=== PATIENT | female | born 1935 | race Caucasian/White ===

== ENCOUNTER 2021-02-20 17:07 | Inpatient (IN) | payer OTHER ==
[~2021-02-20] VITALS: Ht 175.3 cm; Wt 127.0 kg
--- NOTE | ~2021-02-20 | EMS ---
[address] [address] EMS Patient Care Report Name: MELANIE VILLAFANA Room #: 211-P [facility] IN M.R.#: [id number] Admission: 02/20/21 Attend Phys: Ravindra Kong MD Discharge: 02/21/21 Date of : 39 Report #: [id number] THIS REPORT FOR: //name// Report Transmitted: 02/22/2021 11:06 EMS Care Summary [place], [place]/[facility] Incident [id number] @ 02/20/2021 16:23 Incident Location [address] [place] [address] Patient MELANIE VILLAFANA Female, 85 Years 1935 Patient Address [address] [place], [place] [id number] Patient History Congestive Heart Failure (CHF),Cardiomyopathy, Patient Allergies Paroxetine,Lisinopril,Cipro,Niacin,Metformin, Patient Medications Oxycodone/ASA, Zetia, Carvedilol, Docusate Sodium, Furosemide, Chief Complaint SOA Disposition Transported No Lights/[place] Dis[facility] Reason Breathing Problem Transported To [facility] Narrative Upon arrival PT was sitting in the upright position in nurses office. PT had a CC of SOA with onset of the prior day. PT stated that when she is active she becomes SOA. PT was assisted to stretcher and then taken to back of ambulance [place] [id number] EMS Patient Care Report Name: MELANIE VILLAFANA Room #: 211-P [facility] IN M.R.#: [id number] Admission: 02/20/21 Attend Phys: Ravindra Kong MD Discharge: 02/21/21 Date of : 39 Report #: [id number] for further medical evaluation and intervention. PT was then monitored for any change while en route to hospital. Initial Vitals @16:48P: 94,R: 18,BP: 118/76,Pain: 0/10,GCS: 15,CO: 1,SpO2: 95,Revised Trauma: 12, @16:38P: 93,R: 18,BP: 124/77,Pain: 0/10,GCS: 15,CO: 0,SpO2: 90,Revised Trauma: 12, Assessments @16:34MENTAL:No Abnormalities,SKIN:No Abnormalities,HEENT:Head/Face: No Abnormalities,Eyes: No Abnormalities,Neck/Airway: No Abnormalities,LUNG SOUNDS:General: No Abnormalities,Left Upper: No Abnormalities,Right Upper: No Abnormalities,Left Lower: No Abnormalities,Right Lower: No Abnormalities,ABDOMEN:General: No Abnormalities,Left Upper: No Abnormalities,Right Upper: No Abnormalities,Left Lower: No Abnormalities,Right Lower: No Abnormalities,PELVIS//GI:No Abnormalities,EXTREMITIES:Capillary Refill: Right Upper: < 2 Sec,Capillary Refill: Left Upper: < 2 Sec,PULSE:Radial: 2+ Normal,NEURO:No Abnormalities, Impression Acute Respiratory Distress (Dyspnea) Procedures @16:40 Oxygen FlowRate: 3 Device: Nasal Cannula (NC) Response: ImprovedSucceeded @16:34 ALS Assessment Response: UnchangedSucceeded Timeline 16:21,Call Received 16:21,Dispatch Notified 16:23,Dispatched 16:23,En Route 16:32,On Scene 16:34,At Patient 16:34,ALS Assessment,Response: UnchangedSucceeded, 16:38,BP: 124/77 M,PULSE: 93,RR: 18 R,SPO2: 90 Ox,ETCO2: ,BG: ,PAIN: 0,GCS: 15, 16:40,Oxygen FlowRate: 3 Device: Nasal Cannula (NC) Response: ImprovedSucceeded, 16:44,Depart Scene 16:48,BP: 118/76 M,PULSE: 94,RR: 18 R,SPO2: 95 Ox,ETCO2: ,BG: ,PAIN: 0,GCS: 15, 16:56,At Destination 17:25,Call Closed Disclaimer v1.1 Copyright 2020 [employer] [place] [address] EMS Patient Care Report Name: MELANIE VILLAFANA Room #: 211-P [facility] IN M.R.#: [id number] Admission: 02/20/21 Attend Phys: Ravindra Kong MD Discharge: 02/21/21 Date of : 39 Report #: [id number] This EMS Care Summary contains data elements from the applicable legal record (which may be displayed differently). It is designed to provide pertinent information for the following purposes: continuity of care, clinical quality, and state data reporting. The complete legal record is available to ED staff and administrators of the receiving hospital in [facility]'s Patient Tracker. All data is provided "as is."
[2021-02-20 17:31] VITALS: BP 154/73
[2021-02-20 17:35] LABS: ABSOLUTE NEUTROPHILS 6.4 thou/uL (1.4-8.2); BASOPHILS 0.8 % (0.0-2.0); EOSINOPHILS 5.2 % (0.0-3.0); HEMATOCRIT 41.3 % (37.0-47.0); HEMOGLOBIN 13.6 gm/dL (12.0-15.0); LYMPHOCYTES 9.2 % (24.0-44.0); MCH 24.7 pg (26.0-34.0); MCHC 33.1 g/dL (28.0-37.0); MCV 74.8 fL (80.0-100.0); MONOCYTES 10.6 % (1.0-8.0); PLATELET COUNT 184 thou/uL (150-400); POLYS 74.2 % (36.0-66.0); RBC 5.51 mil/uL (4.20-5.00); RDW 15.2 % (10.5-14.5); WBC 8.6 thou/uL (4.0-11.0)
[2021-02-20 17:50] LABS: CALCIUM 9.1 mg/dL (8.5-10.1); CREATININE 1.3 mg/dL (0.6-1.0); POTASSIUM 4.1 mmol/L (3.5-5.1)
[2021-02-20 21:39] LABS: INR 1.08; PROTIME 11.7 Seconds (10.5-12.1)
[2021-02-20 21:49] VITALS: BP 140/62
[2021-02-20 22:03] LABS: HEMATOCRIT 43.8 % (37.0-47.0); HEMOGLOBIN 14.4 gm/dL (12.0-15.0); MCH 24.6 pg (26.0-34.0); MCHC 32.8 g/dL (28.0-37.0); RBC 5.85 mil/uL (4.20-5.00); RDW 15.5 % (10.5-14.5); WBC 10.5 thou/uL (4.0-11.0)
[2021-02-20] MEDS ORDERED: BUPROPION HCL200 MG PO (22:03)
[2021-02-20] MEDS ORDERED: ENTRESTO 24 MG1 EACH PO (22:04)
[2021-02-20] MEDS ORDERED: CARVEDILOL25 MG PO (22:04)
[2021-02-20] MEDS ORDERED: EZETIMIBE10 MG PO (22:05)
[2021-02-20] MEDS ORDERED: LEVOTHYROXINE200 MC1 PO (22:05)
[2021-02-20] MEDS ORDERED: GLIMEPIRIDE1 MG PO (22:05)
[2021-02-20] MEDS ORDERED: LEVOTHYROXINE25 MCG PO (22:06)
[2021-02-20] MEDS ORDERED: OMEPRAZOLE40 MG PO (22:07)
[2021-02-20] MEDS ORDERED: LOSARTAN POTASS50 MG PO (22:07)
[2021-02-20] MEDS ORDERED: TAMSULOSIN HCL0.4 MG PO (22:07)
[2021-02-20] MEDS ORDERED: ZOLOFT 50 MG TA50 MG PO (22:07)
[2021-02-20] MEDS ORDERED: FLONASE 0.05%50 MCG NASAL (22:08)
[2021-02-20] MEDS ORDERED: NORVASC5 MG PO (22:08)
[2021-02-20 22:18] LABS: APTT 27.9 Seconds (24.5-32.8); INR 1.05; PROTIME 11.4 Seconds (10.5-12.1)
[2021-02-20 22:44] VITALS: BP 143/66
[2021-02-21 00:07] VITALS: BP 138/77
--- NOTE | 2021-02-21 02:58 | NUR ---
PATIENT ADMITTED TO UNIT APPROXIMATELY 2315 ON 02/20/21. PATIENT CAME FROM ER WITH A DIAGNOSIS OF PE. ER STATED THAT HEPARIN BAG IS ON POLE BUT WAS NOT STARTED DUE TO APTT NOT RESULTED. NOTED THAT ORDER FOR THE HEPARIN INFUSION WAS SCHEDULED TO BEGIN AROUND 1999 WHILE IN THE ER. LAB RESULTS SHOW THAT APTT WAS RESULTED AROUND 2134. AT THIS TIME PATIENT IS DOING WELL AND SHOWS NO S/S OF DISTRESS. NOTED THAT SHE IS ON 3L NC. PATIENT IS ABLE TO AMBULATE FROM STRETCHER TO HER BED. NOTIFIED PROVIDER SALES LEAD GENERATOR REGARDING THE STATUS OF THE HEPARIN INFUSION. NEW ORDER NOTED. INFUSION BEGAN APPROX 2335. PATIENT IS AAOX4. WILL CONTINUE TO MONITOR FOR CHANGES IN STATUS.
[2021-02-21 04:45] VITALS: BP 142/64
[2021-02-21 06:21] LABS: CALCIUM 9.2 mg/dL (8.5-10.1); CREATININE 1.4 mg/dL (0.6-1.0); POTASSIUM 4.1 mmol/L (3.5-5.1)
--- NOTE | 2021-02-21 07:32 | NUR ---
RN SPOKE WITH THE PATIENT THIS MORNING, PT IS A GREAT HISTORIAN. PER PT SHE HAD A PERFORATED BOWEL WHICH LED TO LLQ ABDOMEN COLOSTOMY, 1 WEEK HOSPITAL STAY AND ONE MONTH REHAB STAY. PT IS [facility], WHEN ASKED WHY PATIENT HAD STOPPED TAKING MEDICATION RADHA, PT STATED THAT SHE HAD PROFOUND ARTHRITIS AND ADVERSE REACTION WITH THE MEDICATION, PT CANNOT RECALL THE DOSAGE OF THE MEDICATION.
[2021-02-21 08:00] VITALS: BP 139/58
--- NOTE | 2021-02-21 11:11 | 2DMMODE ---
[facility] [address] [place] [address] 2 D/M-MODE ECHOCARDIOGRAM Name: MELANIE VILLAFANA Room #: 211-P ADM IN M.R.#: [id number] Admission: 02/20/21 Attend Phys: Ravindra Kong MD Discharge: Date of : 39 Report #: [id number] THIS REPORT FOR: cc: Roz Pantoja MD, Karmel MD Santiago, Patrick MD [facility] ~ APPROVED REPORT Study performed: 02/21/2021 09:27:51 EXAM: Comprehensive 2D, Doppler, and color-flow Echocardiogram Patient Location: Bedside Room #: 211 Status: routine BSA: 2.38 HR: 90 bpm BP: 142/64 mmHg Other Information Study Quality: Technically Difficult Technically limited study due to body habitus, inability to position patient. Indications Congestive Heart Failure Diabetes Dyspnea Cardiomyopathy Hypertension/HDD 2D Dimensions IVSd: 12.99 (7-11mm) LVOT Diam: 22.58 (18-24mm) LVDd: 65.07 mm PWd: 13.20 (7-11mm) Ascending Ao: 32.30 (22-36mm) LVDs: 55.71 (25-40mm) Left Atrium: 42.96 (27-40mm) Aortic Root: 32.13 mm IVC: 19.00 mm Aortic Valve AoV Peak Robbie.: 1.87 m/s AO Peak Gr.: 14.66 mmHg LVOT Max P.71 mmHg LVOT Max V: 1.09 m/s MELINDA Vmax: 2.32 cm2 [facility] [address] [address] 2 D/M-MODE ECHOCARDIOGRAM Name: MELANIE VILLAFANA Room #: 211-P ADM IN M.R.#: [id number] Admission: 02/20/21 Attend Phys: Ravindra Kong, Discharge: Date of : 39 Report #: [id number] Pulmonary Valve PV Peak Robbie.: 0.95 m/s PV Peak Gr.: 3.59 mmHg Tricuspid Valve TR Peak Robbie.: 2.72 m/s TR Peak Gr.: 29.49 mmHg PA Pressure: 34.00 mmHg Left Ventricle Left ventricle is dilated. Borderline concentric left ventricular hypertrophy. Left ventricular ejection fraction is moderately decreased. LVEF is 30-35%. This study is not technically sufficient to allow evaluation of the LV diastolic function. Right Ventricle The right ventricle is normal size. The right ventricular systolic function is normal. Atria The left atrium size is normal. Right atrium is at the upper limits of normal. Aortic Valve The aortic valve is normal in structure. No aortic regurgitation is present. There is no aortic valvular stenosis. Mitral Valve The mitral valve is normal in structure. There is no mitral valve regurgitation noted. No evidence of mitral valve stenosis. Tricuspid Valve The tricuspid valve is normal in structure. There is trace to mild tricuspid regurgitation. Estimated PAP 34 mmHg. There is mild pulmonary hypertension. Pulmonic Valve The pulmonary valve is normal in structure. There is no pulmonic valvular regurgitation. Great Vessels The aortic root is normal in size. IVC is normal in size and collapses >50% with inspiration. Pericardium There is no pericardial effusion. [facility] [address] [place] [address] 2 D/M-MODE ECHOCARDIOGRAM Name: MELANIE VILLAFANA Room #: 211-P ADM IN .R.#: [id number] Admission: 02/20/21 Attend Phys: Ravindra Kong, Discharge: Date of : 39 Report #: [id number] <Conclusion> Left ventricle mildly dilated with borderline concentric hypertrophy Ejection fraction 30-35% with global hypokineses more prominent in the anteroseptum Normal right ventricle size/function Normal aortic/mitral valve structure and function Mild tricuspid valve insufficiency Pulmonary systolic pressure estimated 34 mmHg No pericardial effusion Normal aortic root size. <ELECTRONICALLY SIGNED> By: Calin Hart MD, FACC 02/21/21 1111 1111 1111 Calin Hart MD, FACC /INF
[2021-02-21 12:00] VITALS: BP 156/50
[2021-02-21 15:30] VITALS: BP 122/72
[2021-02-21] MEDS ORDERED: ELIQUIS5 MG PO ×2 (16:00→16:01)
== END 2021-02-21 18:23 | DRG 175 ==
LOC: ER 17:07 → 2N 20:14 → EROBS 20:14 → 2N 22:16
PROVIDERS: Emergency Medicine; Nurse Practitioner Family; ADMIT Internal Medicine; ATTEND Internal Medicine
DX: I26.99 Other pulmonary embolism without acute cor pulmonale (principal); J96.01 Acute respiratory failure with hypoxia; Z68.41 Body mass index [BMI] 40.0-44.9, adult; I42.9 Cardiomyopathy, unspecified; E66.01 Morbid (severe) obesity due to excess calories; I10 Essential (primary) hypertension; Z96.611 Presence of right artificial shoulder joint; E89.0 Postprocedural hypothyroidism; E11.9 Type 2 diabetes mellitus without complications; Z66 Do not resuscitate; R53.81 Other malaise; R79.1 Abnormal coagulation profile; R60.0 Localized edema; H35.30 Unspecified macular degeneration; K21.9 Gastro-esophageal reflux disease without esophagitis; F32.A Depression, unspecified; Z20.822 Contact with and (suspected) exposure to COVID-19; Z23 Encounter for immunization; Z86.711 Personal history of pulmonary embolism; Z93.3 Colostomy status; Z79.899 Other long term (current) drug therapy; Z91.81 History of falling; G47.00 Insomnia, unspecified
CPT/HCPCS: 10081